=== PATIENT | female | born 1985 | race Caucasian/White ===

== ENCOUNTER 2018-12-21 07:47 | Outpatient (CLI) | payer OTHER ==
[2018-12-21] MEDS ORDERED: MEDR150V IM (08:35)
[2018-12-21] MEDS ORDERED: SERT100T32 PO (08:35)
[2018-12-21] MEDS ORDERED: CHOL40002 PO (08:35)
[2018-12-21] MEDS ORDERED: TRAM50TA2 PO (08:35)
[2018-12-21] MEDS ORDERED: CYCL-259 PO (08:35)
[2018-12-21] MEDS ORDERED: TRAZ-137 PO (08:35)
== END 2018-12-21 23:59 | disposition home or self-care (01) ==
LOC: STAR 07:47
PROVIDERS: ATTEND Orthopaedic Surgery
DX: Z02.9 Encounter for administrative examinations, unspecified (principal)

== ENCOUNTER 2018-12-25 05:13 | Day surgery (SDC) | payer OTHER ==
[~2018-12-25] VITALS: Ht 162.6 cm; Wt 125.1 kg
== END 2018-12-25 13:40 | disposition home or self-care (01) ==
LOC: OUT 05:13
PROVIDERS: ATTEND Orthopaedic Surgery
DX: S83.241A Other tear of medial meniscus, current injury, right knee, initial encounter (principal); M25.361 Other instability, right knee; M22.41 Chondromalacia patellae, right knee; M65.861 Other synovitis and tenosynovitis, right lower leg; E66.01 Morbid (severe) obesity due to excess calories; Z68.42 Body mass index [BMI] 45.0-49.9, adult; Z79.891 Long term (current) use of opiate analgesic; Z79.899 Other long term (current) drug therapy; Z87.891 Personal history of nicotine dependence; Z88.8 Allergy status to other drugs, medicaments and biological substances; X58.XXXA Exposure to other specified factors, initial encounter; Y93.89 Activity, other specified; Y92.89 Other specified places as the place of occurrence of the external cause; Y99.8 Other external cause status
CPT/HCPCS: 27418; 29873; 29876; 29881; 73560; 81025; C1713; J0171; J0690; J1100; J1170; J2274; J2370; J2405; J2704; J3010; J3490; J7120; 76000